=== PATIENT | female | born 1965 | race Caucasian/White ===

== ENCOUNTER 2016-11-25 23:32 | Emergency (ER) | payer MEDICAID ==
[2016-11-25 23:39] VITALS: O2SAT 98
[2016-11-26 01:29] VITALS: BP 129/81; PULSE 75; RESP 18; TEMP 97.8
== END 2016-11-26 01:26 | disposition home or self-care (01) ==
LOC: C.ER 23:32
DX: G56.01 Carpal tunnel syndrome, right upper limb (principal)